=== PATIENT | female | born 1995 | race Caucasian/White ===

== ENCOUNTER → 2016-04-02 | Outpatient (CLI) | payer BC ==
--- NOTE | 2016-04-02 20:22 | WWHP ---
DATE OF SERVICE: 04/02/2016. CHIEF COMPLAINT: Patient is here for her routine gynecologic exam. HPI: This is a 20-year-old G0 with an LMP of 03/12/2016. She is on Tri-Linyah for control. She states she is doing well with this and is without complaints. PAST MEDICAL HISTORY: Unremarkable. MEDICATIONS: 1. Tri-Linyah 1 daily. 2. Multivitamin daily. ALLERGIES: No known drug allergies. PAST SURGICAL HISTORY: [place] teeth removed in 2011. 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 SOCIAL HISTORY: She denies tobacco and drug use and drinks about 2 alcoholic drinks per week. She was recently in 12/2015. 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 FAMILY HISTORY: Unremarkable. REVIEW OF SYSTEMS: She has lost about 8 pounds over the last year. She denies respiratory, cardiac, or GI problems. PHYSICAL EXAM: Blood pressure 107/70. Height 5 feet 5 inches. Weight 128 pounds. Temperature 97.1, pulse 76. This a well-developed, well-nourished white female who is alert and oriented x3 in no acute distress. HEENT is within normal limits. NECK: Supple without mass or thyromegaly. CHEST AND LUNGS: Clear to auscultation. HEART: Regular rate and rhythm. Breasts are without mass or discharge. Axillary exam is negative for adenopathy. BACK: Negative for CVA tenderness. ABDOMEN: Soft, nontender, without palpable masses. PELVIC EXAM: Normal external genitalia. Cervix and vagina appear normal. There is no unusual discharge. The cervix is noninflamed. There is no cervical motion tenderness. The uterus is midposition, nongravid size and nontender. There are no palpable adnexal masses or tenderness. Rectal exam was deferred. EXTREMITIES: Nontender. IMPRESSION: A gynecologically healthy 20-year-old doing well on oral contraception. PLAN: 1. Pap smear was deferred, since she had a normal one last year. 2. Self-breast examination was discussed. 3. She will continue control pills. 4. We have discussed preconception planning if she ever decides to try to attempt and if she discontinues her control pills. I stressed importance of taking daily multivitamin with folic acid. I have also recommended that she be familiar with the CDC recommendations for a Zika virus prevention and testing if she is considering attempting . STDs screening was discussed and she is declining screening at this time since she does not feel this is necessary. 5. She will return in one year.
== END | disposition home or self-care (01) ==

== ENCOUNTER → 2017-04-16 | Outpatient (CLI) | payer BC ==
--- NOTE | 2017-04-16 12:50 | WWHP ---
[facility] - HISTORY AND PHYSICAL DATE OF SERVICE: 04/16/2017 CHIEF COMPLAINT: The patient is here for her routine gynecologic exam. HPI: This is a 21-year-old G0 with an LMP of 04/08/2017. The patient is on oral contraception for control. She states she may consider attempting in the next couple of years. She is without gynecologic complaints. PAST MEDICAL HISTORY: Unremarkable. MEDICATIONS: 1. Tri-Estarylla 1 daily. 2. Multivitamin daily. ALLERGIES: No known drug allergies. PAST SURGICAL HISTORY: [place] teeth removed in 2011. 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 SOCIAL HISTORY: She denies tobacco and drug use and has about 1 alcohol containing drink per week. 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 FAMILY HISTORY: Unremarkable. REVIEW OF SYSTEMS: She has gained about 5 pounds over the last year. She denies respiratory, cardiac or GI problems. PHYSICAL EXAM: Blood pressure 132/58, height 5 feet 5 inches, weight 133 pounds, temperature 96.6, pulse 74. This is a well-developed, well-nourished, white female, who is alert and oriented x3, in no acute distress. HEENT is within normal limits. NECK: Supple without mass or thyromegaly. CHEST AND LUNGS: Clear to auscultation. HEART: Regular rate and rhythm. Breasts are without mass or discharge. Axillary exam is negative for adenopathy. BACK: Negative for CVA tenderness. ABDOMEN: Soft, nontender, without palpable masses. PELVIC EXAM: Normal external genitalia. Cervix and vagina appear normal. There is no unusual discharge. There is no cervical motion tenderness. The uterus is mid position, nongravid size and nontender. There are no palpable adnexal masses or tenderness. Rectal exam was deferred. EXTREMITIES: Nontender. IMPRESSION: A 21-year-old gynecologically healthy female, doing well on oral contraception. PLAN: 1. Pap smear was performed. 2. Self breast examination was discussed. 3. STD screening was discussed and declined. She does not feel she is at risk for STDs. 4. Preconception planning was discussed if she does decide to attempt . I have recommended that she keep track of her menstrual periods. I recommended she continue daily multivitamin with folic acid. I have also recommended that she review the CDC web site for Zika virus recommendations at the time when she is contemplating attempting . 5. A prescription for her control pills were given for the upcoming year and she will return in 1 year or p.r.n. NORMA / JAMAR: [id number] /
== END | disposition home or self-care (01) ==
LOC: CANPRECLI → WWCWWP 10:27
PROVIDERS: ATTEND Obstetrics & Gynecology
DX: Z53.9 Procedure and treatment not carried out, unspecified reason (principal)